=== PATIENT | male | born 1955 | race Caucasian/White ===

== ENCOUNTER → 2016-09-18 | Outpatient (CLI) | payer OTHER ==
--- NOTE | 2016-09-18 11:08 | MRI ---
HISTORY: Low back pain Study: MRI lumbar spine without contrast Comparison: None Technique: Multiplanar multi-sequence MRI of the lumbar spine was obtained. Sagittal T1, sagittal T 2, and stir weighted images, axial T1, and axial T2 images were obtained. Findings: There is slight retrolisthesis L4 on L5. The lumbar spine demonstrates otherwise normal alignment wi th the expected signal characteristics of the bone marrow with the exception of some degenerative en dplate changes at L4-5.. The conus of the cord terminates normally. T12 -- L1: No evidence for compressive disc disease. The neural foramina are patent. The joints are normal. L1 -- L2: Mild concentric disc bulging causes thecal sac effacement however the neural foramina are patent. Mild facet arthropathy is present. L2 -- L3: Broad-based disc protrusion effaces the thecal sac and contributes along with bilateral fa cet arthropathy to significant lateral recess and foraminal narrowing bilaterally. L3 -- L4: Broad-based disc protrusion effaces the thecal sac and contributes along with bilateral fa cet arthropathy to significant lateral recess and foraminal narrowing bilaterally right worse than l eft. L4 -- L5: There is broad-based disc protrusion which contributes along with severe facet arthropathy , pedicular shortening, and bilateral facet arthropathy to a severe spinal stenosis with severe late ral recess and foraminal narrowing bilaterally. L5 -- S1: No evidence for compressive disc disease. The neural foramina are patent. Bilateral facet arthropathy is present. IMPRESSION: As above Reported By:
== END ==
LOC: RAD 09:21
PROVIDERS: ATTEND Specialist
DX: M51.36 Other intervertebral disc degeneration, lumbar region (principal)
CPT/HCPCS: 72148

== ENCOUNTER 2016-10-27 12:26 | Day surgery (SDC) | payer OTHER ==
[2016-10-27] MEDS ORDERED: MARCAINE/EPINEPHRINE ONE (13:04)
[2016-10-27] MEDS ORDERED: KENALOG INJ 40 MG ONE (13:05)
[2016-10-27] MEDS ORDERED: XYLOCAINE 2 % (PLAIN) ONE (13:08)
--- NOTE | 2016-10-27 13:12 | DR.UPDATE ---
H&P Update History and Physical Update: History and Physical reviewed and patient examined. Changes noted: NO Yes with the following: Please see office note for full H&P. No interval changed and I agree that SI injection would be the most reasonable way to procede. Will perform L SI joint injection today
[2016-10-27 13:38] VITALS: BP 152/78
== END 2016-10-27 13:40 | disposition home or self-care (01) | DRG 552 ==
LOC: SURG1 12:26
PROVIDERS: ATTEND Specialist
PROC: 3E0U3BZ Introduction of Anesthetic Agent into Joints, Percutaneous Approach (ICD-10-PCS; 2016-10-27)
PROC: 3E0U33Z Introduction of Anti-inflammatory into Joints, Percutaneous Approach (ICD-10-PCS; principal; 2016-10-27 12:30)
DX: M53.3 Sacrococcygeal disorders, not elsewhere classified (principal)
CPT/HCPCS: 20610; 76000; S0020; J2001; J3301